=== PATIENT | female | born 1940 | race Caucasian/White ===

== ENCOUNTER 2020-12-08 11:41 | Outpatient (REF) | payer OTHER, SELFPAY ==
--- NOTE | ~2020-12-08 | XR_ITS ---
EXAMINATION: XR FOOT, RIGHT CLINICAL INFORMATION: Injury of right foot COMPARISON: None TECHNIQUE: AP, lateral, and oblique views of the right foot. XR/XR foot RT min 3V FINDINGS AND IMPRESSION: * No acute abnormalities are identified within the foot. * Moderate-sized plantar calcaneal enthesophyte. * Bones have normal alignment throughout the foot. No acute fracture, subluxation or focal soft tissue swelling. * There appears to be mild joint space narrowing, mild subarticular sclerosis and small osteophytes of the mildly degenerated first tarsometatarsal joint. The bones have normal alignment at the Lisfranc joint. * Bone island of the medial neck of the third metatarsal. No suspicious bone lesion.
== END 2020-12-08 11:42 | disposition home or self-care (01) ==
LOC: HO.HMGCX 11:41
PROVIDERS: PCP Family Medicine; Visit Provider Physician Assistant Medical
DX: S99.921A Unspecified injury of right foot, initial encounter (principal)
CPT/HCPCS: 73630

== ENCOUNTER 2021-01-31 10:07 | Emergency (ER) | payer OTHER, SELFPAY ==
--- NOTE | ~2021-01-31 | XR_ITS ---
EXAMINATION: LUMBAR SPINE, LEFT HIP WITH PELVIS AND LEFT ANKLE CLINICAL INFORMATION: Fall and pain COMPARISON: None TECHNIQUE: 3 views lumbar spine. 3 views left hip and AP pelvis. 3 views left ankle. FINDINGS: Lumbar spine: There is normal lumbar lordosis. There is L3 compression deformity likely old. Rest of the vertebral heights are normal. No lytic or sclerotic process seen. There is moderate ventral spondylosis lower dorsal and upper lumbar spine. No lytic or sclerotic process seen. Left hip and AP pelvis: There is decreased joint space right hip joint with periarticular spurring. The left hip joint space is normal. SI joints are normal. No visible acute fracture or dislocation seen. Left ankle: The ankle mortise and subtalar joints are normal. There is a lateral metallic plate and screws stabilizing old healed fibular fracture. There is solitary compression screw stabilizing old healed medial malleolar fracture. There is no acute fracture seen. No abnormal joint effusion or soft tissue swelling. XR/XR hip LT w PEL1V IMPRESSION: L3 compression deformity likely old. There are degenerative disc changes lower dorsal and upper lumbar spine. Degenerative changes right hip joint. There is no fracture or dislocation of the pelvis or the left hip. No acute fracture or dislocation left ankle. There is a lateral plate and screws for an old healed fibular fracture and a solitary compression screw for a right medial malleolar fracture.
--- NOTE | ~2021-01-31 | XR_ITS ---
EXAMINATION: LUMBAR SPINE, LEFT HIP WITH PELVIS AND LEFT ANKLE CLINICAL INFORMATION: Fall and pain COMPARISON: None TECHNIQUE: 3 views lumbar spine. 3 views left hip and AP pelvis. 3 views left ankle. FINDINGS: Lumbar spine: There is normal lumbar lordosis. There is L3 compression deformity likely old. Rest of the vertebral heights are normal. No lytic or sclerotic process seen. There is moderate ventral spondylosis lower dorsal and upper lumbar spine. No lytic or sclerotic process seen. Left hip and AP pelvis: There is decreased joint space right hip joint with periarticular spurring. The left hip joint space is normal. SI joints are normal. No visible acute fracture or dislocation seen. Left ankle: The ankle mortise and subtalar joints are normal. There is a lateral metallic plate and screws stabilizing old healed fibular fracture. There is solitary compression screw stabilizing old healed medial malleolar fracture. There is no acute fracture seen. No abnormal joint effusion or soft tissue swelling. XR/XR ankle LT min 3V IMPRESSION: L3 compression deformity likely old. There are degenerative disc changes lower dorsal and upper lumbar spine. Degenerative changes right hip joint. There is no fracture or dislocation of the pelvis or the left hip. No acute fracture or dislocation left ankle. There is a lateral plate and screws for an old healed fibular fracture and a solitary compression screw for a right medial malleolar fracture.
--- NOTE | ~2021-01-31 | XR_ITS ---
EXAMINATION: LUMBAR SPINE, LEFT HIP WITH PELVIS AND LEFT ANKLE CLINICAL INFORMATION: Fall and pain COMPARISON: None TECHNIQUE: 3 views lumbar spine. 3 views left hip and AP pelvis. 3 views left ankle. FINDINGS: Lumbar spine: There is normal lumbar lordosis. There is L3 compression deformity likely old. Rest of the vertebral heights are normal. No lytic or sclerotic process seen. There is moderate ventral spondylosis lower dorsal and upper lumbar spine. No lytic or sclerotic process seen. Left hip and AP pelvis: There is decreased joint space right hip joint with periarticular spurring. The left hip joint space is normal. SI joints are normal. No visible acute fracture or dislocation seen. Left ankle: The ankle mortise and subtalar joints are normal. There is a lateral metallic plate and screws stabilizing old healed fibular fracture. There is solitary compression screw stabilizing old healed medial malleolar fracture. There is no acute fracture seen. No abnormal joint effusion or soft tissue swelling. XR/XR lumbar spine 2-3V IMPRESSION: L3 compression deformity likely old. There are degenerative disc changes lower dorsal and upper lumbar spine. Degenerative changes right hip joint. There is no fracture or dislocation of the pelvis or the left hip. No acute fracture or dislocation left ankle. There is a lateral plate and screws for an old healed fibular fracture and a solitary compression screw for a right medial malleolar fracture.
--- NOTE | 2021-01-31 11:46 | ED_ITS ---
HPI - Fall General Stated Complaint: fell in ED parking lot 01/29 (L side now in pain) Time Seen by Provider: 01/31/21 11:44 Source: patient Mode of arrival: ambulatory Limitations: no limitations History of Present Illness HPI Narrative: On Sunday patient was at [facility] [place] and she fell when she missed the curb. Patient with increased lumbar pain into the left hip. She is having pain with ambulation and is not walking well. she is having pain in the left ankle where she had prior surgery MD complaint: fall Onset (ago): day(s) Fall from: standing Place fall occurred: other ([facility]) Loss of consciousness: none Symptoms prior to fall: none Context: tripped/slipped Severity: moderate Related Data Home Medications Medication Instructions Recorded Confirmed levothyroxine 75 mcg tablet 75 mcg PO DAILY 12/08/20 (Synthroid) metoprolol succinate 100 mg 100 mg PO DAILY 12/08/20 tablet,extended release 24 hr mirabegron 50 mg tablet,extended 50 mg PO DAILY 12/08/20 release 24 hr (Myrbetriq) Previous Rx's Medication Instructions Recorded cyclobenzaprine 5 mg tablet 5 mg PO TID PRN #14 tab 01/31/21 meloxicam 7.5 mg tablet (Mobic) 7.5 mg PO DAILY #14 tab 01/31/21 Allergies Allergy/AdvReac Type Severity Reaction Status Date / Time No Known Allergies Allergy Verified 12/08/20 11:14 [No Known Allergies*] Review of Systems Constitutional: Constitutional: Reports no additional constitutional complaints Eyes: Eyes: Reports no additional eye complaints ENT: Denies dizziness Cardiovascular: Cardiovascular: Reports no additional cardiovascular complaints Respiratory: Respiratory: Reports as per HPI Gastrointestinal: Gastrointestinal: Reports no additional gastrointestinal complaints Genitourinary: Genitourinary: Reports no additional female genitourinary complaints Musculoskeletal: Musculoskeletal: Reports no additional musculoskeletal complaints Integumentary/Breasts: Skin/Breast: Denies rash Neurologic: Reports system reviewed and no additional complaints, except as documented, Denies dizziness and Denies Sensory deficit (Neuro) Psychiatric: Psychiatric: Denies anxiety PMFSH Social History Social History Advance Directives: No Advance Directives Information Provided: No Physical Exam 2 Const: Other: frail elderly female Nutritional Appearance: thin Orientation/consciousness: oriented to person and patient oriented x3 Limitations: no limitations HENMT: Head: Yes normal to inspection Ears: external ears normal General nose exam: Normal external nose present Mouth: Normal oral and palatal mucosa present and oropharynx normal Throat: Yes posterior oropharynx normal Eyes: General: appearance normal, both eyes and all related structures Neck: Other: supple Neck: Yes normal visual inspection Chest: Chest palpation & inspection: normal inspection of the chest Resp: Auscultation: clear to auscultation bilaterally Cardio: Jugular venous distension: no JVD Rate: regular rate Rhythm: regular rhythm Heart sounds: S1 normal heart sound present and S2 normal heart sound present GI: Inspection: Yes normal to inspection Palpation (GI): Soft to palpation, nontender and No hepatosplenomegaly present Auscultation: normal bowel sounds Back/Spine/Pelvis: Other: left lumbar tenderness Skin: General skin exam: no rashes or lesions noted Neuro: General: oriented to person and patient oriented x3 Cranial nerves: Yes CN's II-XII intact bilaterally Motor exam (neuro): 5/5 motor strength present throughout Sensory Exam: No Sensory deficit (Neuro) Extrem: Other: left hip tenderness with range of motion Psych: Appearance: grossly normal Course Reevaluation(s) Reevaluation #1: patient with no active fracture will start nsaids and dc home Time: 13:43 MDM - Fall Imaging Data lumbar spine, left ankle, left hip: Radiologist's impression: IMPRESSION: L3 compression deformity likely old. There are degenerative disc changes lower dorsal and upper lumbar spine. ? Degenerative changes right hip joint. There is no fracture or dislocation of the pelvis or the left hip. ? No acute fracture or dislocation left ankle. There is a lateral plate and screws for an old healed fibular fracture and a solitary compression screw for a right medial malleolar fracture. Discharge Plan Discharge Clinical Impression: Lumbar spine strain Qualifiers: Encounter type: initial encounter Qualified Code(s): S39.012A - Strain of muscle, fascia and tendon of lower back, initial encounter Contusion of hip Qualifiers: Encounter type: initial encounter Laterality: left Qualified Code(s): S70.02XA - Contusion of left hip, initial encounter Ankle sprain Qualifiers: Encounter type: initial encounter Involved ligament of ankle: unspecified ligament Laterality: left Qualified Code(s): S93.402A - Sprain of unspecified ligament of left ankle, initial encounter Patient Disposition: Home, Self-Care Instructions: Ankle Sprain (ED), Acute Low Back Pain (ED), Hip Contusion (ED) Prescriptions: New meloxicam [Mobic] 7.5 mg tablet 7.5 mg PO DAILY Qty: 14 RF: 0 cyclobenzaprine 5 mg tablet 5 mg PO TID PRN (Reason: muscle spasm) Qty: 14 RF: 0 No Action metoprolol succinate 100 mg tablet extended release 24 hr 100 mg PO DAILY RF: 0 levothyroxine [Synthroid] 75 mcg tablet 75 mcg PO DAILY RF: 0 Myrbetriq 50 mg tablet extended release 24 hr 50 mg PO DAILY RF: 0 Referrals: Sudhir Baig MD [Primary Care Provider] - 5 days
[2021-01-31 15:42] VITALS: BP 140/59; PULSE 88; RESP 16; TEMP 36.7; O2SAT 100; BMI 21.6
== END 2021-01-31 16:03 | disposition home or self-care (01) ==
PROVIDERS: Emergency Provider Emergency Medicine; PCP Family Medicine
DX: S39.012A Strain of muscle, fascia and tendon of lower back, initial encounter (principal); S70.02XA Contusion of left hip, initial encounter; S93.402A Sprain of unspecified ligament of left ankle, initial encounter; W19.XXXA Unspecified fall, initial encounter; Y93.9 Activity, unspecified; Y92.238 Other place in hospital as the place of occurrence of the external cause; Y99.9 Unspecified external cause status
CPT/HCPCS: 72100; 73502; 73610; 99283

== ENCOUNTER 2024-12-13 13:18 | Emergency (ER) | payer OTHER, SELFPAY ==
--- NOTE | ~2024-12-13 | CT_ITS ---
CLINICAL HISTORY: fall, head strike, pain CT cervical spine without contrast Comparison: None Findings: Normal limited view of the intracranial contents. Soft tissues of the neck are normal. Lung apices are normal. Normal vertebral body alignment. No fractures or dislocations. Degenerative disc changes are present, more significant C5-C7.. Impression: 1. No cervical vertebral fracture or traumatic malalignment. This document has been electronically signed by: Solo Bah MD on 12/13/2024 15:05:31
--- NOTE | ~2024-12-13 | CT_ITS ---
CLINICAL HISTORY: fall, head strike, pain CT head without contrast Comparison: None Findings: No intracranial mass, midline shift, hydrocephalus, or acute hemorrhage. No CT evidence of acute ischemia. Visualized paranasal sinuses and mastoid air cells normal. Orbits unremarkable. No skull fracture Impression: 1. No acute intracranial abnormalities. This document has been electronically signed by: Solo Bah MD on 12/13/2024 15:04:22
--- NOTE | 2024-12-13 13:25 | ED_ITS ---
HPI - General Adult General Chief complaint: Fall Stated complaint: mechanical Fall w/ h/s & pain, - thinner,- LOC Time Seen by Provider: 12/13/24 13:24 Source: patient and EMS Mode of arrival: EMS Limitations: no limitations History of Present Illness ED Provider: Debbi Rincon PA-C HPI narrative: Patient is an 84 year old assigned female at with a history of HTN, hypothyroidism, OAB, osteoporosis, and rosacea presenting to the emergency department today with right sided face pain after a fall. Patient states that she was walking to her car when she tripped and fell, hitting the right side of her head / face. Patient states that she did not have any loss of consciousness. Patient states that she does not take any anti-coagulation medications. Patient denies any other complaints at this time. Related Data Home Medications ?Medication ?Instructions ?Recorded ?Confirmed levothyroxine 75 mcg tablet 75 mcg PO DAILY 12/08/20 (Synthroid) metoprolol succinate 100 mg 100 mg PO DAILY 12/08/20 tablet,extended release 24 hr mirabegron 50 mg tablet,extended 50 mg PO DAILY release 24 hr (Myrbetriq) Previous Rx's ?Medication ?Instructions ?Recorded cyclobenzaprine 5 mg tablet 5 mg PO TID PRN muscle spa sm #14 01/31/21 tabs meloxicam 7.5 mg tablet (Mobic) 7.5 mg PO DAILY #14 ta bs 01/31/21 Allergies Allergy/AdvReac Type Severity Reaction Status Date / Time No Known Allergies (No Known Allergy Verified 12/13/24 13:36 Allergies*) Review of Systems 2 Constitutional: Constitutional: Reports as per HPI Eyes: Eyes: Reports as per HPI ENT: Reports as per HPI Cardiovascular: Cardiovascular: Reports as per HPI Respiratory: Respiratory: Reports as per HPI Gastrointestinal: Gastrointestinal: Reports as per HPI Genitourinary: Genitourinary: Reports as per HPI Musculoskeletal: Musculoskeletal: Reports as per HPI Integumentary/Breasts: Skin/Breast: Reports as per HPI Neurologic: Reports as per HPI Psychiatric: Psychiatric: Reports as per HPI Endocrine: Endocrine: Reports as per HPI Hematologic/Lymphatic: Hematologic/Lymphatic: Reports as per HPI Allergic/Immunologic: Allergic/Immunologic: Reports as per HPI [facility] Past Medical History Attestation statement: The following information was validated with the patient. Source: old records reviewed and nursing notes reviewed Social History Social History Advance Directives: Yes Advance Directives Information Provided: No Advance Directives on File: No Do you have a plan to hurt others: No Plan Physical Exam ED Vital Signs: Vital Signs - 24 hr 12/13/24 13:35 12/13/24 14:00 12/13/24 17:19 Temperature 98.1 F 98.1 F Pulse Rate 80 73 73 Respiratory Rate 16 16 16 Blood Pressure 165/68 H 160/68 H 155/75 H Pulse Oximetry 98 99 100 Oxygen Delivery Method Room Air Room Air Room Air BMI result Body Mass Index 20.2 Const General: cooperative, no acute distress, alert and awake Nutritional Appearance: well nourished Orientation/consciousness: patient oriented x3 HENMT Other: Ears: hearing grossly normal bilaterally and external ears normal General nose exam: Normal external nose present, no nasal discharge noted and no epistaxis Mouth: Normal oral and palatal mucosa present, no drooling and no muffled voice Eyes General: appearance normal, both eyes and all related structures Periorbital: periorbital findings normal Eyelids: Yes eyelids normal Conjunctivae: conjunctivae normal Pupils: Equal, round and reactive pupils present EOM: EOMs intact bilaterally Neck Neck: Yes normal visual inspection and Yes full ROM Resp Effort & Inspection: normal respiratory effort and able to speak in complete sentences Neuro General: patient oriented x3, moves all extremities and CN's II-XI intact bilaterally Cranial nerves: Yes Equal, round and reactive pupils present Cognition (Neuro): normal cognition Extrem General: Yes normal to inspection, Yes full ROM and Yes capillary refill normal Psych Appearance: grossly normal Mental Status: mental status grossly normal Affect: normal affect Attitude: cooperative Thought process: Normal thought process present Thought content: Normal thought content present Insight: Good insight present (Psych) Course Course Course Narrative: 1839--still unable to get in touch with patient's HCP/sister. Will put in PT/case management consults. Patient is not a safe discharge as she lives home alone. Physician observation initiated Medications Administered Discontinued Medications Generic Name Dose Route Start Last Admin Trade Name Freq PRN Reason Stop Dose Admin Diphtheria/Tetanus/Acell Pertussis 0.5 ml 12/13/24 14:38 12/13/24 14:53 Diphth,Pertus(Acell),Tet Adult 0.5 Ml Syringe IM 12/13/24 14:39 0.5 ml .ONCE ONE Administration Lidocaine HCl 10 ml 12/13/24 13:39 12/13/24 14:52 Lidocaine Hcl 1 % Mpf 5 Ml Vial SUBCUT 12/13/24 13:40 10 ml ONCE ONE Administration Procedures Laceration Superior: Site: face Side (If applicable): right Size (cm): 0.25 Description: flap and irregular Depth: simple, single layer Local Anesthetic: lidocaine 1% Amount of anesthesia used (mL): 1 Pre-repair: wound explored and irrigated extensively Skin layer closed with: other (prolene) Size (cm): 6-0 Number of sutures: 1 Technique: simple, interrupted Inferior: Site: face Side (If applicable): right Size (cm): 2 Description: linear Depth: simple, single layer Local Anesthetic: lidocaine 1% Amount of anesthesia used (mL): 5 Pre-repair: wound explored, irrigated extensively and deep structures intact Skin layer closed with: other (prolene) Size (cm): 6-0 Number of sutures: 2 Technique: simple, interrupted Medical Decision Making Medical Decision Making MDM Narrative: Patient is an 84 year old assigned female at with a history of HTN, hypothyroidism, OAB, osteoporosis, and rosacea presenting to the emergency department today after a mechanical fall. Patient's physical exam was as noted in the physical exam portion of this note. Patient's CT head + c-spine showed no acute process. I explained my physical exam findings as well as all test results to the patient. I answered all questions asked by the patient. Patient's lacerations were repaired, as noted in the procedure notes, without incident. During the patient's laceration repairs - the patient stated that she didn't remember leaving the room to go get scans. Patient confirmed she remembered the events leading up to her being at the hospital and she remembered being at the hospital. I consulted with my attending physician, Dr. Goldberg, who stated this is consistent with a concussion and did not recommend repeating her CT head. Patient will await discharge until her sister / healthcare proxy can safely pick her up. Patient signed out to [facility]. Differential Diagnosis Differential Diagnoses: The differential diagnosis associated with the presentation includes Concussion Facial laceration Admission/Observation Consideration of admission/observation: Escalation of care including admission/observation considered Patient would have been admitted to the hospital had her work up had any findings where hospital admission was appropriate and her clinical presentation warranted hospital admission. Independent Interpretation I performed an independent interpretation of an: CT Scan Interpretation: My interpretation is in agreement with the radiologist's impression of these imaging studies. L Reason for Exam: fall, head strike, pain CLINICAL HISTORY: fall, head strike, pain CT cervical spine without contrast Comparison: None Findings: Normal limited view of the intracranial contents. Soft tissues of the neck are normal. Lung apices are normal. Normal vertebral body alignment. No fractures or dislocations. Degenerative disc changes are present, more significant C5-C7.. Impression: 1. No cervical vertebral fracture or traumatic malalignment. This document has been electronically signed by: Solo Bah MD on 12/13/2024 15:05:31 Dictated By: Solo Bah MD Signed By: Electronically signed by Solo Bah MD 12/13/24 [id number] Reason for Exam: fall, head strike, pain CLINICAL HISTORY: fall, head strike, pain CT head without contrast Comparison: None Findings: No intracranial mass, midline shift, hydrocephalus, or acute hemorrhage. No CT evidence of acute ischemia. Visualized paranasal sinuses and mastoid air cells normal. Orbits unremarkable. No skull fracture Impression: 1. No acute intracranial abnormalities. This document has been electronically signed by: Solo Bah MD on 12/13/2024 15:04:22 Dictated By: Solo Bah MD Signed By: Electronically signed by Solo Bah MD 12/13/24 0916 Radiology Impression Discussion of test interpretation with radiology: I have reviewed the radiologist's reading. Independent Historian Clinical information obtained from an independent historian. History obtained from or confirmed by: EMS (EMS provided additional history and confirmed the history provided by the patient. ) Discharge Plan Discharge Clinical Impression: Concussion, Face lacerations Patient Disposition: Home, Self-Care Instructions: Care For Your Stitches (DC), Laceration (DC), Concussion (ED) Additional Instructions: Your CT scan of the head and c-spine showed no acute process. Your symptoms are most consistent with a concussion. Your lacerations were repaired with 3 total stitches (1 in the upper laceration and 2 in the lower laceration). These are to be removed in 7-10 days. Once they are removed and your scab falls away, apply sunscreen every day for 1 full YEAR to mitigate scaring. IF you are prescribed home medications and/or you are taking over the counter medications at home - it is very important you continue to do so as prescribed / directed unless told otherwise. Follow up with your primary care provider. Return to the emergency department immediately if your symptoms worsen or if you develop any numbness, tingling, dizziness, shortness of breath, difficulty breathing, chest pain, blurry vision, loss of vision, nausea, vomiting, abdominal pain, fever, chills, back pain, or any other complaints. Please see the information below about our Patient Portal. If you are not yet enrolled in the [facility] Patient Portal, you will receive an enrollment email invitation following your visit to any [facility] setting. You may also self-enroll in the Patient Portal by visiting our website: [email or web address] The following information is required to access the Patient Portal: - Your [facility] Medical Record Number - Your personal home email address (must match what is in your electronic medical record, Registration staff can assist with this) - Name - Date of Capabilities of the Patient Portal: - Message some providers - View upcoming appointments - Access your health summary, medical history, and visit history - View current conditions and allergies - View procedure and lab results - View your medications, including guidelines, side effects, and precautions - Complete pre-appointment questionnaires requested by your provider - Ready summary reports of your office visits and procedures To access the Patient Portal Mobile Gam[employer], follow these directions: - Search [employer]ole in the Gamal Store or Google Play Store - Download the Gamal - Search for [facility] - Enter your login/password Prescriptions: No Action meloxicam [Mobic] 7.5 mg tablet 7.5 mg PO DAILY Qty: 14 0RF cyclobenzaprine 5 mg tablet 5 mg PO TID PRN (Reason: muscle spasm) Qty: 14 0RF metoprolol succinate 100 mg tablet extended release 24 hr 100 mg PO DAILY levothyroxine [Synthroid] 75 mcg tablet 75 mcg PO DAILY Myrbetriq 50 mg tablet extended release 24 hr 50 mg PO DAILY Referrals: Sudhir Baig MD [Primary Care Provider, Internal Medicine] Discharge Date/Time: 12/13/24 18:25 Print Language: Lebanese
[2024-12-13 13:35] VITALS: BP 134/82; BP 165/68; PULSE 80; PULSE 88; RESP 16; TEMP 36.7; O2SAT 97; O2SAT 98; BMI 20.2
[2024-12-13 14:00] VITALS: BP 160/68; PULSE 73; RESP 16; O2SAT 99
--- OUTSIDE RECORDS SUMMARY | 2024-12-13 14:28 | XMS_ITS | Patient Health Record ---
Author Organization [facility] Address [address] [place] [address] Care Team Providers Care [employer] Plant [employer] Operator Name Role Phone Luis Enrique Romero MD Primary Care Provider Unavailab Edgard Ayers Unavailable [phone] Reason For Referral No Information Medications Medication SIG (Take, Route, Frequency, Duration) Notes Start Date End Date Status Suprep Bowel Prep 1 kit as directed Oral ly as directed; Duration: 1 dose 09/30/2014 Active oxyBUTYnin Chloride ER 10 MG 1 tablet Orally Once a day Active Metoprolol Succinate ER 100 MG 1 tablet Orally Once a day Active Multi Vitamin/Minerals Orally Active Calcium 500 MG 1 tablet with meals Orally Twice a day Active metroNIDAZOLE 0.75 % 1 application to af fected area Externally Twice a day Active Aspir-81 81 MG 1 tablet Orally Once a day Active Synthroid 75 MCG 1 tablet Orally Once a day Active Problems Problem Type SNOMED Code ICD Code Onset Dates Problem Status W/U Status Risk Notes Problem Colon cancer screening (245819840) Colon cancer screening (V76.51) Active confirmed Problem Long-term use of aspirin therapy (V58.66) Active confirmed Plan Of Treatment Future Test Test Name Order Date COLONOSCOPY 09/29/2014 Insurance Providers Payer Name Payer Address Payer Phone Subscriber Number Group Number Insured Name Patient Relationship to Insured Coverage Start Date Coverage End Date [employer] [address] [place] [address] [phone] [id number] LUIS ENRIQUE CASH Self - patient is the insured Medical (General) History Medical History History ICD Code 05/03/2004 Colonoscopy--inac tive colitis in the sigmoid colon, diverticulosis, internal hemorrhoids--- no polyps Hypertension Denies [place],DM,CVA,Lung disease,renal dise ase Hypothyroidism Overactive bladder Surgical History Surgery Date(Month/Year) Vein stripping on both legs Broken ankle w/surgical repair
--- OUTSIDE RECORDS SUMMARY | 2024-12-13 14:28 | XMS_ITS | Patient Health Record ---
Author Organization [facility] [place] Address [address] [place] [address] Care Team Providers Care Nurses' Registry Director Name Role Phone Safia JOHN, Sudhir Primary Care Provider Unamahamed ilearl Julieth Corbin Unavailable [phone] Allergies No Known Allergies Results Component Value Reference Range Notes X ray : Foot, left 3V Reviewed date:03/20/2024 04:43:33 PM Interpretation:See Examination above Performing Lab: Notes/Report: See Examination above X ray : Foot, left 3V Reviewed date:04/10/2024 02:35:18 PM Interpretation:See Examination above Performing Lab: Notes/Report: See Examination above X ray : Foot, left 3V Reviewed date:05/01/2024 05:57:55 PM Interpretation:See Examination above Performing Lab: Notes/Report: See Examination above X ray : Foot, left 3V Reviewed date:06/19/2024 08:59:40 AM Interpretation:See Examination above Performing Lab: Notes/Report: See Examination above Reason For Referral No Information Medications Medication SIG (Take, Route, Frequency, Duration) Notes Start Date End Date Status Synthroid Active Metoprolol Succinate Active Fosamax Not-Taking Ditropan XL Not-Taki ng Toprol XL 1 tablet Orally Once a day Not-Taking Ammonium Lactate 12 % 1 application Exte rnally to affected areas of dry skin to feet except for between the toes Twice a day; Duration: 30 days Active Myrbetriq 50 MG Oral; Duration: 90 Active metroNIDAZOLE PRN Active Levothyroxine Sodium 1 capsule Orally On ce a day Not-Taking valACYclovir HCl PRN Not -Taking Aspirin 81 MG 1 tablet Orally Once a day; Duration: 30 day(s) Not-Milan ing Immunizations Vaccine Route Administration Date Status Comme nts Influenza Unknown 10/21/2023 Administered COVID-19 Pfizer BioNTech Vaccine Unknown 11/18/2020 Administered 1st 04/05/20 2nd dose: 04/26/20 Social History Tobacco Use: Social History Observation Description Date Details (start date - stop date) Never Smoker NA - NA Tobacco use other than smoking: Question Answer Notes Are you an other tobacco user? No Tobacco Control (Standard) Question Answer Notes Tobacco use: Nonsmoker Additional Findings: Tobacco non-user Current no nsmoker AUDIT-C (Standard) Question Answer Notes Did you have a drink contain ing alcohol in the past year? Yes How often did you have a dri nk containing alcohol in the past year? Monthly or less (1 point) How many drinks did you have on a typical day when you were drinking in the past year? 1 or 2 drinks (0 point) How often did you have six o r more drinks on one occasion in the past year? Never (0 point) Points 1 Interpretation Negative Problems Problem Type SNOMED Code ICD Code Onset Dates Problem Status W/U Status Risk Notes Problem Viral wart (66458934) Other viral warts (B07.8) Active confirmed Problem Tinea unguium (488453170) Tinea unguium (B35.1) Active confirmed Vital Signs Heart Rate 79 /min 04/10/2024 Blood pressure diastolic 60 mm Hg 09/22/2024 Height 5 ft 5 in in 09/22/2024 Blood pressure systolic 123 mm Hg 09/22/2024 Weight 130 lbs 09/22/2024 BMI 21.63 kg/m2 09/22/2024 Procedures Procedure Date Ordered Date Performed Result Body Sit e 54360-TVYAFGA NAIL, 6 OR MORE 03/20/2024 N/A 60282-Niiw Destruction, 1-14 03/20/2024 N/A 55535-KCFYATP NAIL, 6 OR MORE 06/19/2024 N/A 43552-CGXGCOW NAIL, 6 OR MORE 09/22/2024 N/A 02817-Kdns Destruction, 1-14 09/22/2024 N/A Encounters Encounter Location Date Provider Diagnosis [facility] [place] [address] [place] [address] 03/20/2024 Julieth Black Contusion of left foot, initial encounter S90.32XA ; Closed displaced fracture of third metatarsal bone of left foot, initial encounter S92.332A ; Other viral warts B07.8 ; Tinea unguium B35.1 ; Pain in left foot M79.672 ; Pain in right toe(s) M79.674 and Pain in left toe(s) M79.[address] [address] 04/10/2024 Julieth Black Pain in left foot M79.672 ; Closed displaced fracture of third metatarsal bone of left foot with delayed healing, subsequent encounter S92.332G and Contusion of left foot, subsequent encounter S90.32XD [address] [address] 05/01/2024 Julieth Black Pain in left foot M79.672 ; Closed displaced fracture of third metatarsal bone of left foot, sequela S92.332S ; Contusion of left foot, subsequent encounter S90.32XD ; Xerosis of skin L85.3 and Contusion of left foot, sequela S90.32XS [address] [address] 06/19/2024 Julieth Black Other viral warts B07.8 ; Closed displaced fracture of third metatarsal bone of left foot, sequela S92.332S ; Tinea unguium B35.1 ; Pain in left foot M79.672 ; Pain in right toe(s) M79.674 ; Pain in left toe(s) M79.675 ; Closed nondisplaced fracture of fourth metatarsal bone of left foot with routine healing, subsequent encounter S92.345D and Contusion of left foot, sequela S90.32XS [address] [address] 09/22/2024 Julieth Black Other viral warts B07.8 ; Tinea unguium B35.1 ; Pain in left foot M79.672 ; Pain in right toe(s) M79.674 and Pain in left toe(s) M79.[address] [place] [address] 03/24/2024 [facility] Sha[facility] [address] [address] 03/24/2024 Julieth Shaquille [facility] [address] [address] 04/17/2024 Julieth Corbin [facility] Encounter Date Diagnosis (ICD Code) Assessment Notes Treatment Notes Treatment Clinical Notes Section Notes 03/20/2024 Contusion of left foot, initial encounter (ICD-10 - S90.32XA) 03/20/2024 Closed displaced fracture of third metatarsal bone of left foot, initial encounter (ICD-10 - S92.332A) 04/10/2024 Pain in left foot (ICD-10 - M79.672) 04/10/2024 Closed displaced fracture of third metatarsal bone of left foot with delayed healing, subsequent encounter (ICD-10 - S92.332G) 05/01/2024 Pain in left foot (ICD-10 - M79.672) 05/01/2024 Closed displaced fracture of third metatarsal bone of left foot, sequela (ICD-10 - S92.332S) 06/19/2024 Other viral warts (ICD-10 - B07.8) 06/19/2024 Closed displaced fracture of third metatarsal bone of left foot, sequela (ICD-10 - S92.332S) 09/22/2024 Other viral warts (ICD-10 - B07.8) 09/22/2024 Tinea unguium (ICD-10 - B35.1) 06/19/2024 Tinea unguium (ICD-10 - B35.1) 05/01/2024 Contusion of left foot, subsequent encounter (ICD-10 - S90.32XD) 04/10/2024 Contusion of left foot, subsequent encounter (ICD-10 - S90.32XD) 03/20/2024 Other viral warts (ICD-10 - B07.8) 03/20/2024 Tinea unguium (ICD-10 - B35.1) 06/19/2024 Pain in left foot (ICD-10 - M79.672) 05/01/2024 Xerosis of skin (ICD-10 - L85.3) 09/22/2024 Pain in left foot (ICD-10 - M79.672) 09/22/2024 Pain in right toe(s) (ICD-10 - M79.674) 03/20/2024 Pain in left foot (ICD-10 - M79.672) 05/01/2024 Contusion of left foot, sequela (ICD-10 - S90.32XS) 06/19/2024 Pain in right toe(s) (ICD-10 - M79.674) 03/20/2024 Pain in right toe(s) (ICD-10 - M79.674) 06/19/2024 Pain in left toe(s) (ICD-10 - M79.675) 09/22/2024 Pain in left toe(s) (ICD-10 - M79.675) 06/19/2024 Closed nondisplaced fracture of fourth metatarsal bone of left foot with routine healing, subsequent encounter (ICD-10 - S92.345D) 03/20/2024 Pain in left toe(s) (ICD-10 - M79.675) 06/19/2024 Contusion of left foot, sequela (ICD-10 - S90.32XS) Plan Of Treatment Pending Test Test Name Order Date 67003-QTHYIBX NAIL, 6 OR MORE 08/28/2011 13415-HHGNHZP NAIL, 6 OR MORE 10/23/2012 95994-OWHGPLF NAIL, 6 OR MORE 09/24/2013 18046-KODSLTX NAIL, 6 OR MORE 07/03/2016 90033-AHHNXSH NAIL, 6 OR MORE 10/02/2016 89856-WXBDCZN NAIL, 6 OR MORE 05/10/2017 89401-KHVHMJN NAIL, 6 OR MORE 01/14/2018 11099-LPRFAZI NAIL, 6 OR MORE 07/25/2018 65756-GZRXVUV NAIL, 6 OR MORE 01/30/2019 06987-TOMHGQU NAIL, 6 OR MORE 07/21/2019 54939-STQBFTQ NAIL, 6 OR MORE 12/11/2019 00001-ZDOZVGS NAIL, 6 OR MORE 04/12/2020 34345-CPEPQCM NAIL, 6 OR MORE 07/22/2020 46224-JUCKYFP NAIL, 6 OR MORE 10/21/2020 73566-FQAKQHR NAIL, 6 OR MORE 01/24/2021 40088-BUQUNPX NAIL, 6 OR MORE 05/09/2021 68298-IHYBBVC NAIL, 6 OR MORE 08/11/2021 06364-DSDIZVC NAIL, 6 OR MORE 11/14/2021 08834-TNPKQHP NAIL, 6 OR MORE 03/02/2022 54262-WAMVXMS NAIL, 6 OR MORE 06/08/2022 26010-FWBAHWB NAIL, 6 OR MORE 09/14/2022 85220-LDWGCMG NAIL, 6 OR MORE 02/08/2023 97413-HVQHFLO NAIL, 6 OR MORE 05/14/2023 47418-DUDDLLR NAIL, 6 OR MORE 09/06/2023 66416-VHPALTD NAIL, 6 OR MORE 12/10/2023 96432-SFOGKTU NAIL, 6 OR MORE 03/20/2024 76033-BOLUSBB NAIL, 6 OR MORE 06/19/2024 88525-FZWURCZ NAIL, 6 OR MORE 09/22/2024 33983-Fwuy Destruction, 1-14 09/22/2024 65242-Andp Destruction, 1-14 05/14/2023 87769-Jcya Destruction, 1-14 03/20/2024 20670-Dzus Destruction, 1-14 12/10/2023 85346-Kvuo Destruction, 1-14 09/06/2023 40531-Jlua Destruction, 1-14 04/12/2020 08302-Zgdl Destruction, 1-14 02/08/2023 48793-Esnb Destruction, 1-14 09/14/2022 59670-Kyax Destruction, 1-14 06/08/2022 74682-Xgmi Destruction, 1-14 03/02/2022 65279-Qlqp Destruction, 1-14 11/14/2021 14677-Itnc Destruction, 1-14 08/11/2021 13517-Aojp Destruction, 1-14 05/09/2021 10294-Iyta Destruction, 1-14 01/24/2021 04045-Psae Destruction, 1-14 10/21/2020 38588-Gwze Destruction, 1-14 07/22/2020 50430-Swds Destruction, 1-14 12/11/2019 19755-Hzis Destruction, 03-0407/21/2019 56104-Bcxf Destruction, 03-0401/30/2019 05298-Hakl Destruction, 03-0407/25/2018 56390-Kpje Destruction, 03-0409/24/2013 31711-Xjcm Destruction, 03-0401/14/2018 41427-Edpu Destruction, 03-0410/02/2016 37761-Pntn Destruction, 03-0405/10/2017 35329-Smed Destruction, 03-0407/03/2016 90105-Etpi Destruction, 03-0410/23/2012 76994-Rpok Destruction, 03-0408/28/2011 59133-Aarmaroq Plate 08/28/2011 56891-Fzvpntcd Plate 09/24/2013 36967-Ilcwzgwy Plate 05/10/2017 08844-Yusldsdq Plate Each Additional 07/2013 50448-Elnhszic Plate Each Additional 10/2011 77379- Debride <25 sq cm 04/12/2020 90192- Debride <25 sq cm 02/08/2023 19595- Debride <25 sq cm 05/14/2023 Next Appt Details Provider Name:Julieth Corbin , 12/22/2024 02:00:00 PM, [address] [facility], [place], [place], [address], Insurance Providers Payer Name Payer Address Payer Phone Subscriber Number Group Number Insured Name Patient Relationship to Insured Coverage Start Date Coverage End Date [employer]) [address] [place] [phone] [id number] [facility] Dipika Farley Self - patient is the insured Medical (General) History Medical History History ICD Code thyroid disorder mumps measles joint implants/screws hypertension chicken pox broken bones Surgical History Surgery Date(Month/Year) ankle surgery 1997 vein surgery blood clots removed from lung 09/2017 Hospitalization History Reason Date(Month/Year) [facility] - pt fell/fractured ribs 09/2017
[2024-12-13] MEDS: Lidocaine HCl 1 % MPF 5 ML VIAL 10 ML SUBCUT (14:52)
[2024-12-13] MEDS: Diphth,Pertus(ACell),Tet Adult 0.5 ML SYRINGE IM (14:53)
[2024-12-13 17:19] VITALS: BP 155/75; PULSE 73; RESP 16; TEMP 36.7; O2SAT 100
== END 2024-12-13 18:25 | disposition home or self-care (01) ==
PROVIDERS: Emergency Provider Emergency Medicine Emergency Medical Services; PCP Family Medicine
DX: S01.81XA Laceration without foreign body of other part of head, initial encounter (principal); W01.0XXA Fall on same level from slipping, tripping and stumbling without subsequent striking against object, initial encounter; Y93.9 Activity, unspecified; Y92.9 Unspecified place or not applicable; Y99.9 Unspecified external cause status; R51.9 Headache, unspecified
CPT/HCPCS: 12011; 70450; 72125; 90471; 90715; 99283; 99284; J2003

== ENCOUNTER → 2024-12-13 13:25 | Outpatient (BNV) | payer OTHER, SELFPAY | PROVIDERS: PCP Family Medicine; Visit Provider Radiology Diagnostic Radiology | DX: S09.90XA Unspecified injury of head, initial encounter (principal); W19.XXXA Unspecified fall, initial encounter | CPT/HCPCS: 70450; 72125 ==